=== PATIENT | male | born 1980 | race Caucasian/White ===

== ENCOUNTER → 2018-03-22 10:43 | Outpatient (CLI) | payer MEDICAID, SELFPAY ==
[2018-03-22 12:59] LABS: Cholesterol 183 mg/dL (200); Ferritin 260 ng/mL (26-388); Free T3 3.3 pg/mL (2.18-3.98); High Density Lipoprotein 40 mg/dL; Thyroid Stim Hormone (TSH) 4.39 uIU/mL (0.358-3.74); Triglycerides 172 mg/dL; Very Low Density Lipoprotein 34 mg/dL (5-40)
[2018-03-25 09:07] LABS: Thyroid Peroxidase AB 48 IU/mL (0-34)
[2018-03-26 11:14] LABS: Anti-Thyroglobulin AB < 1.0 IU/mL (0.0-0.9); H. PYLORI STOOL AG Negative (Negative); Thyroglobulin, Serum Qt. 9.9 ng/mL (1.4-29.2)
== END ==
PROVIDERS: Family Provider Family Medicine; PCP Family Medicine; Visit Provider Family Medicine
DX: K21.9 Gastro-esophageal reflux disease without esophagitis (principal); E03.9 Hypothyroidism, unspecified; M54.5 Low back pain
CPT/HCPCS: 36415; 80061; 82728; 84432; 84439; 84443; 84481; 86376; 86800

== ENCOUNTER → 2019-05-27 16:40 | Outpatient (CLI) | payer MEDICAID, SELFPAY ==
[2013-05-12 20:26] VITALS: BMI 26.4
[2019-05-27 18:13] LABS: High Density Lipoprotein 39 mg/dL; T4 Free Direct 0.79 ng/dL (0.76-1.46); Thyroid Stim Hormone (TSH) 5.08 uIU/mL (0.358-3.74)
== END ==
PROVIDERS: Family Provider Family Medicine; PCP Family Medicine; Visit Provider Family Medicine
DX: E03.9 Hypothyroidism, unspecified (principal)
CPT/HCPCS: 36415; 83718; 84439; 84443

== ENCOUNTER 2020-03-02 17:49 | Outpatient (RCR) | payer MEDICAID, SELFPAY ==
--- NOTE | 2020-03-02 19:26 | HP.PTEVAL ---
Patient's Visit Information GOKUL GARIBAY is a 39 year old M referred to Physical Therapy by Dr. Dwight Bay MD with a diagnosis of LEFT ARM PAIN,INSTABILTY. Date of Evaluation: 03/02/20 Physical Therapist: Fran Solano PT, Cert MDT, OCS - Visit Plan Frequency: 2x /Week Duration: 4 Weeks Plan: PT INTERVENTIONS LYNNETTE EX'S,CERVICAL /POSTURAL EX'S,MODALTIES NEEDED - Subjective This 39 y/o male presents to physical therapy with left arm .Patient noticed pain in left cervical spine about 1 weeld with radicular symptoms in arm about 2weeks noticed symptoms in arm. Patient noticed pain riding motorcyle turning to left. Patient also noticed parathesia/tingling with arms OH painting. Aggraveting factors arm flexed wrist extended ,OH activities with job demands with OH activity,puting pressure on arms.. Alleviating aleve. Patient sleeping okay. Denies LERMA/dizziness/tinnitus. Patient symptoms affects job demands,housework tasks and ADLS'.Patient symptoms affects QOL. Patient has no h/o trauma. Patient had no diagnostics. SOCIAL: . VOCATION: Director Of [employer] - Pain Left Wrist Pain Intensity (Out of 10): 3 Pain Intensity Range: 10 - Objective POSTURE: mild foward posture. PALAPTION: tender UT/levator. NEURO: c/o of parathesia neck and occassional right hand,reflexes C5-6-7 3/3. AROM: BUE WFL. MMT: BUE 4/5. CERVICAL ROM: flexion WFL,extension WFL,lateral flexion/rotation min loss,retraction WFL. THORACIC OUTLET: -squeeze,ryan + on right - Special Tests C/S Radiculapathy - Left Upper limb tension test: Negative C/S Radiculapathy - Right Upper limb tension test: Negative C/S Radiculapathy - Left Spurlings: Negative C/S Radiculapathy - Right Spurlings: Negative C/S Radiculapathy - Left Cervical distraction: Negative C/S Radiculapathy - Right Cervical distraction: Negative C/S Radiculapathy - Valsalva: Negative Sharp Consuelo: Negative Vertebral Artery Test: Negative Alar Ligament Test: Negative Cervical Sitting: Protrusion - Mechanical Response: No effect Cervical Sitting: Protrusion - Symptoms During Testing: No effect Cervical Sitting: Protrusion - Symptoms After Testing: No effect Cervical Sitting: Retraction - Mechanical Response: No effect Cervical Sitting: Retraction - Symptoms During Testing: No effect Cervical Sitting: Retraction - Symptoms After Testing: No effect Cervical Sitting: Retraction-Extension - Mechanical Response: No effect Cerv Sitting: Retraction-Extension - Symptoms During Testing: No effect Cerv Sitting: Retraction-Extension - Symptoms After Testing: No effect Cervical Sitting: Sidebend Right - Mechanical Response: No effect Cervical Sitting: Sidebend Right - Symptoms During Testing: No effect Cervical Sitting: Sidebend Right - Symptoms After Testing: No effect Cervical Sitting: Sidebend Left - Mechanical Response: No effect Cervical Sitting: Sidebend Left - Symptoms During Testing: No effect Cervical Sitting: Sidebend Left - Symptoms After Testing: No effect Cervical Sitting: Rotation Right - Mechanical Response: No effect Cervical Sitting: Rotation Right - Symptoms During Testing: No effect Cervical Sitting: Rotation Right - Symptoms After Testing: No effect Cervical Sitting: Rotation Left - Mechanical Response: No effect Cervical Sitting: Rotation Left - Symptoms During Testing: No effect Cervical Sitting: Rotation Left - Symptoms After Testing: No effect Cervical Sitting: Flexion - Mechanical Response: No effect Cervical Sitting: Flexion - Symptoms During Testing: No effect Cervical Sitting: Flexion - Symptoms After Testing: No effect - Goals Goal 1:: Patient to be I with HEP. Goal Time Frame: 4-6 Weeks Goal 2:: Patient to improve posture for job demnads. Goal Time Frame: 4-6 Weeks Goal 3:: Patient decrease symptoms in cervical spine and left arm by 70% or > to improve function. Goal Time Frame: 4-6 Weeks Goal 4:: Patient to improve neck owestry score by 5 points or > QOL and job demnads. Goal Time Frame: 4-6 Weeks Goal 5:: Patient improve neck ROM for function of recovery Goal Time Frame: 4-6 Weeks - Rehabilitation Potential Physical Therapy Diagnosis: This patient has possible derrangement with symptoms radiating from possible disc and postural dysfunction thus benifit from PT services. Rehabilitation Potential: Good - Anticipated Interventions Patient/Client Instruction: Educate patient on: Condition, Plan of Care For the Purpose of:: To decrease pain, To increase ROM, To improve muscle performance and motor function, To improve ability to perform ADL's, To increase tolerance to activity/condition/position, To improve performance and independence with ADL's, To improve ability of physical actions for home/community/work/leisure, To improve health of tissue, To decrease soft tissue restriction, To increase flexibility/ROM, To improve ability to perform tasks related to life management Therapeutic Exercise to Include: Strength training, Postural training, Flexibilty training, Lynnette Exercises For the Purpose of:: To decrease pain, To increase ROM, To improve muscle performance and motor function, To improve ability to perform ADL's, To increase tolerance to activity/condition/position, To improve ability of physical actions for home/community/work/leisure, To improve health of tissue, To decrease soft tissue restriction, To increase flexibility/ROM, To improve ability to perform tasks related to life management TENS: Yes IF ES: Yes Cryotherapy (ice pack, ice massage): Yes Thermo therapy (hot pack): Yes Ultrasound (thermal/non thermal): Yes Intermittent cervical traction: Yes For the Purpose of:: To decrease pain, To increase ROM, To improve nutrient delivery to tissue, To increase oxygenation perfusion, To improve health of tissue, To decrease soft tissue restriction Thank you for the opportunity to evaluate your patient. For Medicare and Medicare HMO plans, please review the plan of care and approve it. It will need to be FAXED BACK to us at [phone] for Medicare purposes. For Medicare only, by signing this I certify the plan of care. Please let me know if there are questions or concerns regarding this plan of care. Physician Signature: Date:
--- NOTE | 2020-07-29 11:28 | HP.PTDCSUM ---
It has been my pleasure to treat GOKUL GARIBAY referred by Dr. Dwight Bay MD, with the diagnosis of LEFT ARM PAIN,INSTABILTY for a total of 1 visit(s). Discharge Date: Please see the following information for a summary of their discharge status. Left Wrist Pain Intensity (Out of 10): 3 Goal 1:: Patient to be I with HEP. Goal 2:: Patient to improve posture for job demnads. Goal 3:: Patient decrease symptoms in cervical spine and left arm by 70% or > to improve function. Goal 4:: Patient to improve neck owestry score by 5 points or > QOL and job demnads. Goal 5:: Patient improve neck ROM for function of recovery Plan: PT INTERVENTIONS LYNNETTE EX'S,CERVICAL /POSTURAL EX'S,MODALTIES NEEDED If there are questions or concerns regarding this patient's physical therapy, please feel free to call me at [phone]. Thank you for the referral of this patient. Sincerely, Fran Solano, PT, Cert MDT, OCS
== END 2020-03-02 19:00 | disposition home or self-care (01) ==
LOC: PT 17:49
PROVIDERS: PCP Family Medicine; Referring Provider Family Medicine; Visit Provider Family Medicine
DX: M79.602 Pain in left arm (principal); R29.3 Abnormal posture
CPT/HCPCS: 97110; 97161

== ENCOUNTER → 2020-09-04 12:31 | Outpatient (CLI) | payer MEDICAID, SELFPAY ==
[2020-09-04 15:27] LABS: Absolute Lymphocyte Count 2.16 X10^3/uL (0.83-4.51); Absolute Neutrophil Count 3.8 X10^3/uL (2.0-7.7); Basophil# 0.05 X10^3/uL; Basophil% 0.7 % (0-1); Eosinophil# 0.19 X10^3/uL; Eosinophils% 2.7 % (0-5); Hematocrit 47.5 % (40-54); Hemoglobin 15.9 g/dL (13.0-16.5); Lymphocyte # 2.16 X10^3/ul (4.0); Lymphocyte % 31.2 % (19-41); Mean Corp Hgb Conc 33.5 g/dL (32-36); Mean Corpuscular Hgb 28.9 pg (27.0-32.0); Mean Corpuscular Volume 86.2 fL (80-94); Mean Platelet Vol. 9.9 fl (6.2-12.0); Monocyte# 0.76 X10^3/uL; NRBC Flagged by Analyzer 0 % (0-5); Neutrophil # 3.75 X10^3/uL (2.7-7.7); Neutrophil % 54.1 % (47-70); Platelet Count 284 K/mm3 (150-450); RBC Distribution Width CV 12.7 % (11.6-14.6); RBC Distribution Width SD 40.2 fl (35.1-43.9); Red Blood Count 5.51 M/mm3 (4.6-6.2); White Blood Count 6.9 K/mm3 (4.4-11.0)
[2020-09-04 15:52] LABS: AST(SGOT) 28 U/L (15-37); Alanine Aminotransfer ALT/SGPT 61 U/L (16-61); Albumin, Serum 3.9 g/dL (3.2-5.0); Alkaline Phosphatase 69 U/L (45-117); Anion Gap 5 (5-15); BUN 20 mg/dL (7-18); BUN/Creat Ratio 20.4 RATIO (10-20); Chloride 103 mmol/L (98-107); Creatinine, Serum 0.98 mg/dL (0.70-1.30); EST Glomerular Filtration Rate 90 mL/min (>60); Est Glom Filt Rate - Afr Amer 109 mL/min (>60); Globulin 3.9 g/dL (2.2-4.2); Glucose 111 mg/dL (74-106); Potassium 3.7 mmol/L (3.5-5.1); Protein, Total 7.8 g/dL (6.4-8.2); Sodium Level 138 mmol/L (136-145); T4 Free Direct 0.93 ng/dL (0.76-1.46); Thyroid Stim Hormone (TSH) 4.59 uIU/mL (0.358-3.74)
[2020-09-04 15:59] LABS: Microalbumin,Random Urine 14.1 mg/L (NO RANGE EST.); Microalbumin:Creatinine Ratio 7.2 mg/g CRE (<30 mg/g CRE)
== END ==
PROVIDERS: PCP Family Medicine; Referring Provider Family Medicine; Visit Provider Family Medicine
DX: I10 Essential (primary) hypertension (principal); E03.9 Hypothyroidism, unspecified; R53.83 Other fatigue
CPT/HCPCS: 36415; 80053; 82043; 82570; 84439; 84443; 85025

== ENCOUNTER 2021-08-23 09:10 | Day surgery (SDC) | payer MEDICAID, SELFPAY ==
[2021-08-20 17:58] LABS: Thyroid Stim Hormone (TSH) 4.54 uIU/mL (0.358-3.74)
[2021-08-23] VITALS (7 sets, daily range): BP systolic 112–134; BP diastolic 78–90; PULSE 76–90; RESP 16–18; TEMP 36.2–36.6; O2SAT 92–99; BMI 30.4
[2021-08-23] MEDS: Lactated Ringers 1,000 ML 15 ML IV (09:54)
--- NOTE | 2021-08-23 10:12 | PCM.HP.BLA ---
History and Physical Date of Admission: 08/23/21 Intake Vital Signs 05/24/21 14:08 Height 5 ft 11 in Weight: 213 lb BMI 29.7 BP 137/93 H Blood Pressure Location Rt brachial Position Sitting Respiration 18 Intake Visit Reasons: Umbilical hernia Chief Complaint: umbilical hernia Quality Assurance Test Program Manager Required: No Is patient in pain?: No Allergies venom-honey bee [bee venom (honey bee)] Allergy (Verified 05/24/21 14:09) Swelling Medications ascorbic acid (vitamin C) 500 mg capsule mg PO 05/24/21 [History Confirmed 05/24/21] cholecalciferol (vitamin D3) 125 mcg (5,000 unit) capsule 125 mcg PO DAILY 05/24/21 [History Confirmed 05/24/21] levothyroxine 50 mcg tablet ea PO 05/24/21 [History Confirmed 05/24/21] zinc acetate 50 mg (zinc) capsule 50 mg PO DAILY 05/24/21 [History Confirmed 05/24/21] [facility] Medical History (Updated 05/24/21 @ 14:[address] Duglas Abel MD) HTN (hypertension) Thyroid disease Surgical History (Updated 05/24/21 @ 14:07 by Aleta Holder) S/P hernia repair Family History (Updated 05/24/21 @ 14:08 by Aleta Holder) Mother Breast cancer Hypertension CAD (coronary artery disease) Grandfather Cancer lung Grandmother Cancer lung Uncle Cancer lung Hypertension Thyroid disorder Social History (Updated 05/24/21 @ 14:08 by Aleta Holder) Smoking Status: Never smoker alcohol intake: never HPI HPI HPI: GOKUL GARIBAY, is a 40 M who presents to the office today for umbilical hernia. Patient reports that his umbilical hernia has been growing larger and becoming more uncomfortable. Patient reports pain with heavy lifting. Patient also reports discomfort when he hits himself with anything on the abdomen. Patient reports no nausea vomiting or fevers or chills. ROS General General: Yes weight change and fatigue; No appetite, colon cancer, breast cancer or weakness HEENT HEENT: No difficulty swallowing, eye injury, eye surgery, swollen glands or hoarseness Endo Endocrine: Yes thyroid disease; No diabetes mellitus, thyroid cancer, Hair loss, heat intolerance or cold intolerance Skin Skin: No rash or changing moles Breast Breast: No left breast lump, right breast lump, nipple discharge, breast pain, abnormal mammogram, abnormal US or breast enlargement Musc Musculoskeletal: No back problems, arthritis, rheumatoid arthritis, gout or joint pain Cardio Cardiovascular: Yes high blood pressure; No murmur, pacemaker, heart disease, atrial fibrillation, heart attack, heart stent, palpitations, shortness of breat with exertion or chest pain Psych Psychiatric: No depression, anxiety or hearing voices Resp Respiratory: No shortness of breath, No sleep apnea, No cough, No COPD, No asthma, No emphysema and No wheezing Gastro Gastrointestinal: Yes abdominal pain, Yes nausea or vomiting, No diarrhea, No constipation, No blood in stool, Yes acid reflux, No hemorrhoids, No ulcers, No gallbladder problem and No black,tarry stools Sergio Hematologic: No blood thinners, No blood disorders, No bleeding, No anemia and No blood clots Neuro Neurologic: No system reviewed and no additional complaints, except as documented, No as per HPI, No abnormal gait, No abnormal hearing, No abnormal movements, No abnormal speech, No behavioral changes, No burning sensations, No confusion, No convulsions, No disequilibrium, No dizziness, No localized weakness, No frequent falls, No headache(s), No lack of coordination, No loss of vision, No memory loss, No numbness, No other visual disturbances, No radicular pain, No restless legs, No sensory deficit, No syncope, No tingling, No tremor(s), No weakness and No other Exam Const General: cooperative Orientation: alert and oriented x3 HENMT Head: normal to inspection Neck Neck: normal visual inspection and full ROM Chest Chest palpation & inspection: normal inspection of the chest Resp Effort & Inspection: normal respiratory effort Auscultation: clear to auscultation bilaterally Cardio Rate: regular rate Rhythm: regular rhythm GI Inspection: non-distended Palpation: soft, hernia umbilical and nontender Skin General: no rashes or lesions noted Neuro General: patient alert and patient oriented x3 Extrem General: full ROM Psych Appearance: grossly normal Mental Status: mental status grossly normal Assessment and Plan Assessment and Plan (1) Umbilical hernia: Status: Acute Qualifiers: Obstruction and gangrene presence: without obstruction or gangrene Qualified Code(s): K42.9 - Umbilical hernia without obstruction or gangrene Plan - Dr. Duglas Abel MD: The patient has a small reducible umbilical hernia. I discussed open umbilical hernia repair with possible mesh. I explained that if there was a hernia defect over 1 cm I recommend mesh placement. I discussed the procedure in detail. I discussed the risks including but not limited to bleeding, infection, injury to underlying organs. Patient understands the risks and is when to proceed with umbilical hernia repair with possible mesh. Duglas Abel MD Pager: [facility] [address] [place] [address], [address] [place] [address] Office: I have re-examined the patient. There are no clinical changes since date of exam.
[2021-08-23] MEDS: Cefazolin 2 GM in 0.9% Normal Saline 100 ML IV (10:47)
[2021-08-23] MEDS: Bupivacaine Mpf 0.5% 30 ML VIAL (10:59)
--- NOTE | 2021-08-23 11:33 | PCM.OPRPT ---
Problems Associated Problem List Diagnoses (1) Umbilical hernia: Report of Operation Date of Procedure: 08/23/21 Pre-Operative Diagnosis: Umbilical hernia Post-Operative Diagnosis: Umbilical hernia Surgery/Procedure Performed:: Umbilical hernia repair Description of Procedure: Patient was brought back to the operating room and MAC anesthesia was induced. The abdomen was prepped and draped in usual sterile fashion. An incision was marked inferior to the umbilicus and injected with local anesthetic. Incision was then made with scalpel and deepened to the hernia sac. Hernia sac was dissected free from surrounding structures using electrocautery. Hernia was reduced and the fascia was closed with interrupted 0 Nurolon sutures. The cavity was irrigated and suctioned dry and the incision was closed with interrupted 3-0 Vicryl as well as running 4-0 Monocryl suture. Steri-Strips and bandage was applied. Patient tolerated the procedure well. Admit VTE Documentation VTE Mechan Device Prophylaxis: SCD's
--- NOTE | 2021-08-23 11:37 | EX.PCM.DISCH ---
Discharge Instructions Procedure Hernia Diet Discharge Diet: Light diet - advance as tolerated Activity Discharge Activity: May Not Drive (for 2-3 days or while taking narcotic pain meds.) and May Shower (with the bandage in place 1-2 days after surgery.) Lifting Restrictions: 20 pounds for 8 weeks. Additional Activity Instructions:: Climbing stairs is fine, walking is encouraged. Sitting in bed may be uncomfortable. Sitting up using your lateral muscles (sitting up sideways) is usually more comfortable. Do not drive, work heavy equipment of sign legal documents for 24 hours. If your hernia repair was an ingunial repair, you may have scrotal swelling, an ice pack and/or athletic support can provide more comfort. Pain medications may cause nausea, you should typically eat light foods as you take your pain medications. Pain medications may also cause constipation. If you have difficulty with this, discuss with your doctor. Dressing / Incision Call your doctor if your incision/area has: Continuous Slow Oozing, Sudden Increased Bleeding, Increased Pain/ Swelling, Increased Redness and Foul Smelling Discharge Call your doctor if you observe: Fever of 101 or Higher Suture Line Care: Avoid Pulling/Pushing and Avoid Pinching/Bending Follow Up Care Test Results: Test results from this visit will be discussed in further detail at your follow-up appointment, if applicable. Discharge Plan Admission Attending Provider: Duglas Abel Primary Care Provider: Dwight Bay Discharge Orders/Prescriptions Prescriptions: New oxycodone-acetaminophen [Percocet] 5-325 mg tablet 1 tab PO Q6H PRN (Reason: pain) 5 Days Qty: 10 RF: 0 No Action levothyroxine 50 mcg tablet 50 mcg PO DAILY RF: 0 ascorbic acid (vitamin C) 500 mg capsule 500 mg PO DAILY RF: 0 cholecalciferol (vitamin D3) 125 mcg (5,000 unit) capsule 125 mcg PO DAILY RF: 0 Galzin 50 mg (zinc) capsule 50 mg PO DAILY RF: 0 Referrals / Follow Up: Dwight Bay MD [Primary Care Provider] - Disposition Disposition (needs filled in before D/C Order can be placed): Home, Self Care
== END 2021-08-23 23:59 | disposition home or self-care (01) ==
LOC: SDC 09:10 → AC 09:10
PROVIDERS: Anesthesiology; PCP Family Medicine; Referring Provider Surgery; Visit Provider Surgery
PROC: (CPT 49585; principal; 2021-08-23 10:45)
DX: K42.9 Umbilical hernia without obstruction or gangrene (principal); I10 Essential (primary) hypertension; E07.9 Disorder of thyroid, unspecified; Z79.899 Other long term (current) drug therapy
CPT/HCPCS: 49585; 00750; J2405; J0330; 36415; 84443; 87426; C9803; J7120

== ENCOUNTER → 2023-08-04 | Outpatient (CLI) | payer OTHER, MEDICAID, SELFPAY ==
[2023-08-04 17:37] LABS: Hematocrit 47.4 % (40-54); Hemoglobin 15.9 g/dL (13.0-16.5)
[2023-08-04 18:10] LABS: ALB/GLOB Ratio 1.2 RATIO (0.9-2.4); AST(SGOT) 22 U/L (15-37); Alanine Aminotransfer ALT/SGPT 24 U/L (16-61); Albumin, Serum 4.1 g/dL (3.2-5.0); Alkaline Phosphatase 58 U/L (45-117); Anion Gap 5 (5-15); BUN 19 mg/dL (7-18); BUN/Creat Ratio 18.8 RATIO (10-20); Calcium,Total 9.3 mg/dL (8.5-10.1); Chloride 107 mmol/L (98-107); Cholesterol 192 mg/dL (200); Creatinine, Serum 1.01 mg/dL (0.70-1.30); EST Glomerular Filtration Rate 86 mL/min (>60); Est Glom Filt Rate - Afr Amer 104 mL/min (>60); Globulin 3.5 g/dL (2.2-4.2); Glucose 85 mg/dL (74-106); High Density Lipoprotein 44 mg/dL; Potassium 3.9 mmol/L (3.5-5.1); Protein, Total 7.6 g/dL (6.4-8.2); Sodium Level 139 mmol/L (136-145); T4 Free Direct 0.86 ng/dL (0.76-1.46); Thyroid Stim Hormone (TSH) 2.91 uIU/mL (0.358-3.74)
== END | disposition home or self-care (01) ==
LOC: MFPLAB 15:21
PROVIDERS: PCP Family Medicine; Visit Provider Family Medicine
DX: I10 Essential (primary) hypertension (principal); D50.0 Iron deficiency anemia secondary to blood loss (chronic); E03.9 Hypothyroidism, unspecified
CPT/HCPCS: 36415; 80053; 82465; 83718; 84439; 84443; 85014; 85018